=== PATIENT | female | born 1980 | race Two or more races ===

== ENCOUNTER 2017-02-06 22:23 | Emergency (ER) | payer SELFPAY ==
[~2017-02-06] VITALS: Ht 160 cm; Wt 104.0 kg
[2017-02-06] MEDS ORDERED: ALBUTEROL (0.083%) 2.5MG/3ML NEB HHN STA (22:53)
[2017-02-06] MEDS ORDERED: IPRATROPIUM BROMIDE (0.02%) 0.5MG/2.5ML NEB HHN STA (22:53)
[2017-02-06] MEDS ORDERED: PREDNISONE 20MG TABLET PO STA (22:53)
[2017-02-06] MEDS ORDERED: ALBUTEROL (0.5%) 2.5MG/0.5ML NEB HHN ONE (23:11)
[2017-02-07 00:09] VITALS: BP 143/92
== END 2017-02-07 01:03 | disposition home or self-care (01) ==
LOC: ER 22:24
DX: J45.909 Unspecified asthma, uncomplicated (principal); F17.200 Nicotine dependence, unspecified, uncomplicated; Z98.890 Other specified postprocedural states; Z88.0 Allergy status to penicillin
CPT/HCPCS: 71010; 94640; 99283; 99406; J7512; J7611; Z7610

== ENCOUNTER 2017-10-22 19:07 | Emergency (ER) | payer SELFPAY ==
[~2017-10-22] VITALS: Ht 160 cm; Wt 100.0 kg
[2017-10-22 19:08] VITALS: BP 145/80
== END 2017-10-23 00:53 | disposition left against medical advice (07) ==
LOC: ER 19:24
DX: M79.671 Pain in right foot (principal); Z53.21 Procedure and treatment not carried out due to patient leaving prior to being seen by health care provider

== ENCOUNTER 2019-10-10 17:01 | Inpatient (IN) | payer MEDICAID ==
[~2019-10-10] VITALS: Ht 160 cm; Wt 104.3 kg
[2019-10-10] MEDS ORDERED: ONDANSETRON HCL 4MG/2ML INJ IV STA (17:22)
[2019-10-10] MEDS ORDERED: MORPHINE SULFATE 4 MG/ML CPJ (NOT FOR IM USE) IV STA (17:22)
[2019-10-10 18:03] LABS: BASOPHILS % 0.6 % (0.0-2.0); EOSINOPHILS % 0.9 % (0.0-5.0); HEMATOCRIT. 47.7 % (36.0-48.0); HEMOGLOBIN. 16.5 g/dL (12.0-16.0); LYMPHOCYTES % 23.9 % (20.0-50.0); MEAN CORPUSCULAR HEMOGLOBIN 30.7 pg (28.0-32.0); MEAN CORPUSCULAR VOLUME 89.2 fL (81.0-99.0); MEAN PLATELET VOLUME 8.4 fl (7.4-10.4); MONOCYTES % 2.3 % (2.0-8.0); NEUTROPHILS % 72.3 % (40.0-76.0); PLATELET 357 x1000/uL (130-400); RED BLOOD CELL COUNT 5.35 mill/uL (4.2-5.4); RED CELL DISTRIBUTION WIDTH 13.9 % (11.6-14.6)
[2019-10-10 18:06] LABS: CHLORIDE 102 mEq/L (98-107)
[2019-10-10 18:07] LABS: PROTHROMBIN TIME 10.7 sec (9.6-11.0)
[2019-10-10 18:14] LABS: HCG SCREEN NEGATIVE
[2019-10-10] MEDS ORDERED: SODIUM CHLORIDE 0.9% 1,000 ML IV ONE (18:22)
[2019-10-10] MEDS ORDERED: KETOROLAC 30MG/ML VIAL IV NR (18:22)
[2019-10-10] MEDS ORDERED: SODIUM CHLORIDE 0.9% 1000ML BAG (SEPSIS BOLUS) IV ONE (19:30)
[2019-10-10] MEDS ORDERED: LEVOFLOXACIN 750MG PREMIX 150 ML IV ONE (19:45)
[2019-10-10 20:27] LABS: CLARITY URINE TURBID (CLEAR); COLOR URINE ORANGE (YELLOW); KETONES URINE NEGATIVE (NEGATIVE); LEUKOCYTE ESTERASE URINE 1+ (NEGATIVE); NITRITE URINE POSITIVE (NEGATIVE); OCCULT BLOOD URINE 3+ (NEGATIVE); PROTEIN URINE 2+ (NEGATIVE); SPECIFIC GRAVITY URINE 1.029 (1.005-1.030)
[2019-10-10 20:39] LABS: *BARBITURATES SCREEN URINE NEGATIVE (NEGATIVE); *BENZODIAZEPINES SCREEN URINE NEGATIVE (NEGATIVE); *COCAINE SCREEN URINE NEGATIVE (NEGATIVE)
[2019-10-10 20:40] LABS: CANNABINOID URINE SCREEN NEGATIVE (NEGATIVE); METHADONE URINE SCREEN NEGATIVE (NEGATIVE); PHENCYCLIDINE URINE SCREEN NEGATIVE (NEGATIVE)
[2019-10-10 20:45] LABS: *AMPHETAMINES SCREEN URINE PRESUMTIVE POSITIVE (NEGATIVE); OPIATES URINE SCREEN PRESUMTIVE POSITIVE (NEGATIVE)
[2019-10-10] MEDS ORDERED: VANCOMYCIN 1 G PREMIX 200 ML IV NR (20:45)
[2019-10-10] MEDS ORDERED: HYDROCODONE/ACETAMINOPHEN 5/325MG TABLET PO PRN (21:00)
[2019-10-10] MEDS ORDERED: LEVOFLOXACIN 500MG PREMIX 100 ML IV SCH (21:00)
[2019-10-10] MEDS ORDERED: ONDANSETRON HCL 4MG/2ML INJ IV PRN (21:00)
[2019-10-10] MEDS ORDERED: CLONIDINE 0.1MG TABLET PO PRN (21:00)
[2019-10-10 23:00] VITALS: BP 154/93
[2019-10-11] VITALS: BP 140/77
[2019-10-11] MEDS ORDERED: SODIUM CHLORIDE 0.9% 1,000 ML IV SCH
[2019-10-11] MEDS: AMLODIPINE 5MG TABLET PO SCH ×2 (00:04→08:48)
[2019-10-11] MEDS: KETOROLAC 30MG/ML VIAL IV PRN ×2 (00:05→07:00)
[2019-10-11 04:00] VITALS: BP 136/79
[2019-10-11 07:48] LABS: HEMOGLOBIN. 14.3 g/dL (12.0-16.0); MEAN CORPUSCULAR HEMOGLOBIN 31.1 pg (28.0-32.0); MEAN CORPUSCULAR VOLUME 88.8 fL (81.0-99.0); MEAN PLATELET VOLUME 8.7 fl (7.4-10.4); PLATELET 275 x1000/uL (130-400); RED BLOOD CELL COUNT 4.62 mill/uL (4.2-5.4); RED CELL DISTRIBUTION WIDTH 13.8 % (11.6-14.6)
[2019-10-11 08:00] VITALS: BP 127/72
[2019-10-11 08:20] LABS: CHLORIDE 105 mEq/L (98-107)
[2019-10-11 14:11] LABS: PLATELET ESTIMATE NORMAL
[2019-10-11] MEDS ORDERED: LEVOFLOXACIN 500MG PREMIX 100 ML IV SCH (21:00)
== END 2019-10-11 10:30 | disposition left against medical advice (07) | DRG 720 ==
LOC: ER 17:01 → 5WST 20:43 → EDBEDREQ 20:55 → ENRESERV 21:04
PROVIDERS: ADMIT Internal Medicine; ATTEND Internal Medicine
DX: A41.9 Sepsis, unspecified organism (principal); E87.2 Acidosis; F15.90 Other stimulant use, unspecified, uncomplicated; F17.210 Nicotine dependence, cigarettes, uncomplicated; I10 Essential (primary) hypertension; J45.909 Unspecified asthma, uncomplicated; N39.0 Urinary tract infection, site not specified; R74.0 Nonspecific elevation of levels of transaminase and lactic acid dehydrogenase [LDH]; N10 Acute pyelonephritis; Z53.21 Procedure and treatment not carried out due to patient leaving prior to being seen by health care provider; Z98.891 History of uterine scar from previous surgery; Z88.0 Allergy status to penicillin; Z71.6 Tobacco abuse counseling
CPT/HCPCS: 36415; 74176; 80048; 80305; 81003; 83605; 84703; 87077; 87186; 93005; 99291; J1885; J1956; J2270; J2405; J3370; J7030

== ENCOUNTER 2020-03-29 04:36 | Emergency (ER) | payer SELFPAY ==
[~2020-03-29] VITALS: Ht 160 cm; Wt 96.6 kg
[2020-03-29 05:17] VITALS: BP 168/108
== END 2020-03-29 05:55 | disposition home or self-care (01) ==
LOC: ER 05:30
DX: T16.2XXA Foreign body in left ear, initial encounter (principal); F15.10 Other stimulant abuse, uncomplicated; J45.909 Unspecified asthma, uncomplicated; Z88.0 Allergy status to penicillin; Z98.890 Other specified postprocedural states; X58.XXXA Exposure to other specified factors, initial encounter; Y93.89 Activity, other specified; Y92.018 Other place in single-family (private) house as the place of occurrence of the external cause
CPT/HCPCS: 99281

== ENCOUNTER 2021-06-20 03:48 | Emergency (ER) | payer MEDICAID ==
[~2021-06-20] VITALS: Ht 157.5 cm; Wt 98.0 kg
[2021-06-20] MEDS ORDERED: SODIUM CHLORIDE 0.9% 1,000 ML IV ONE (04:15)
[2021-06-20 05:07] LABS: BASOPHILS % 0.5 % (0.0-2.0); EOSINOPHILS % 1.5 % (0.0-5.0); HEMATOCRIT. 40.1 % (36.0-48.0); HEMOGLOBIN. 13.9 g/dL (12.0-16.0); MEAN CORPUSCULAR HEMOGLOBIN 30.6 pg (28.0-32.0); MEAN CORPUSCULAR VOLUME 88.6 fL (81.0-99.0); MEAN PLATELET VOLUME 8.6 fl (7.4-10.4); MONOCYTES % 4.2 % (2.0-8.0); NEUTROPHILS % 73.8 % (40.0-76.0); PLATELET 332 x1000/uL (130-400); RED BLOOD CELL COUNT 4.53 mill/uL (4.2-5.4); RED CELL DISTRIBUTION WIDTH 13.7 % (11.6-14.6)
[2021-06-20 05:09] LABS: CLARITY URINE CLOUDY (CLEAR); COLOR URINE DARK YELLOW (YELLOW); KETONES URINE TRACE (NEGATIVE); LEUKOCYTE ESTERASE URINE 2+ (NEGATIVE); NITRITE URINE NEGATIVE (NEGATIVE); OCCULT BLOOD URINE NEGATIVE (NEGATIVE); PH URINE 5.5 (4.5-8.0); PROTEIN URINE 1+ (NEGATIVE); SPECIFIC GRAVITY URINE 1.023 (1.005-1.030)
[2021-06-20 05:14] LABS: CHLORIDE 104 mEq/L (98-107)
[2021-06-20 05:17] LABS: ETHANOL BLOOD < 10 mg/dL
[2021-06-20 05:22] LABS: *BARBITURATES SCREEN URINE NEGATIVE (NEGATIVE); *BENZODIAZEPINES SCREEN URINE NEGATIVE (NEGATIVE); *COCAINE SCREEN URINE NEGATIVE (NEGATIVE); CANNABINOID URINE SCREEN NEGATIVE (NEGATIVE); PHENCYCLIDINE URINE SCREEN NEGATIVE (NEGATIVE)
[2021-06-20 05:23] LABS: METHADONE URINE SCREEN NEGATIVE (NEGATIVE); OPIATES URINE SCREEN NEGATIVE (NEGATIVE)
[2021-06-20] MEDS ORDERED: MORPHINE SULFATE 4 MG/ML CPJ (NOT FOR IM USE) IV ONE (05:30)
[2021-06-20] MEDS ORDERED: ONDANSETRON HCL 4MG/2ML INJ IV ONE (05:30)
[2021-06-20 05:32] LABS: *AMPHETAMINES SCREEN URINE PRESUMTIVE POSITIVE (NEGATIVE)
[2021-06-20 08:27] VITALS: BP 120/74
== END 2021-06-20 08:34 | disposition left against medical advice (07) ==
LOC: ER 03:48
DX: R10.9 Unspecified abdominal pain (principal); J45.909 Unspecified asthma, uncomplicated; Z88.0 Allergy status to penicillin
CPT/HCPCS: 36415; 80053; 80305; 80320; 81003; 83605; 83690; 84145; 85025; 87040; 87086; 93005; 96361; 96374; 96375; 99284; J2270; J2405; J7030; G0480